=== PATIENT | female | born 1985 | race American Indian/Alaskan Native ===

== ENCOUNTER 2019-06-03 09:59 | Emergency (ER) | payer SELFPAY ==
[2019-06-03 10:19] VITALS: BP 120/82
[2019-06-03] MEDS ORDERED: traMADol 50 MG TAB PO ONE (11:18)
--- NOTE | 2019-06-03 11:20 | Emergency Department Report ---
ED Back Pain/Injury HPI - General Chief Complaint: Neck Pain/Injury Stated Complaint: BACK SHARP PAIN Time Seen by Provider: 06/03/19 10:39 Source: patient Limitations: No Limitations - History of Present Illness Initial Comments: This is a 33-year-old -[place] female who presents to the emergency room with mid back pain today. Patient states she fell asleep while riding in a car from [place] yesterday and woke up with mid back pain. Reports pain is worse with movement of right upper extremity. Patient reports taking toms, Robitussin, and NSAIDs with no improvement of symptoms. She denies recent injury, numbness or tingling, paresthesias, swelling, bruising, or weakness. MD Complaint: back pain Onset/Timin -: days(s) Similar Symptoms Previously: No Place: street Severity: severe Severity scale (0 -10): 10 Quality: dull Consistency: intermittent Improves With: immobilization Worsens With: movement Context: unknown Associated Symptoms: denies: numbness, difficulty urinating, incontinence, fever/chills Treatments Prior to Arrival: NSAIDS, other medications - Related Data Previous Rx's Medication Instructions Recorded Last Taken Type Ibuprofen [Motrin 800 MG tab] 800 mg PO Q8HR PRN #20 tablet 06/03/19 Unknown Rx methOCARBAMOL [Robaxin TAB] 500 mg PO BID PRN #15 tablet 06/03/19 Unknown Rx Allergies Allergy/AdvReac Type Severity Reaction Status Date / Time No Known Allergies Allergy Unverified 06/03/19 10:04 ED Review of Systems ROS: Stated complaint: BACK SHARP PAIN Other details as noted in HPI Constitutional: denies: chills, fever Respiratory: denies: cough, shortness of breath, wheezing Cardiovascular: denies: chest pain, palpitations Gastrointestinal: denies: abdominal pain, nausea, diarrhea Musculoskeletal: back pain. denies: joint swelling, arthralgia Skin: denies: rash, lesions Neurological: denies: headache, weakness, paresthesias Psychiatric: denies: anxiety, depression ED Past Medical Hx - Past Medical History Gastritis ED Back Pain Physical Exam - Exam General: Vital signs noted. No distress. Alert and acting appropriately. Back/Abdomen: Yes Perithoracic Tenderness, No Abdominal Tenderness, No Perilumbar Tenderness, No Sacroiliac Tenderness, No Flank Tenderness, No Straight Leg Raise Pain Neuro: Yes Normal Sensation, Yes Normal DTR's, Yes Normal Gait, No Motor We akness ED Course Vital Signs 06/03/19 10:16 Temperature 97.9 F Pulse Rate 87 Respiratory 18 Rate Blood Pressure 120/82 O2 Sat by Pulse 100 Oximetry ED Medical Decision Making - Radiology Data Radiology results: report reviewed XR spine thoracic 2V INDICATION / CLINICAL INFORMATION: back pain. COMPARISON: None available. FINDINGS: BONES/JOINT(S): No vertebral fracture. No significant degenerative changes. Slight right convex scoliosis with the apex around the T6-7 level. (This may be positional). No aggressive appearing bone lesions. SOFT TISSUES: No significant abnormality. ADDITIONAL FINDINGS: There is a calcified left hilar lymph node in keeping with previous granulomas disease. - Medical Decision Making Patient was examined by me. Patient is nontoxic appearing and stable. Vitals are normal. Obtained x-ray of thoracic spine with no acute radiographic findings. Given analgesics while in the ER. Physical findings susceptible of muscle strain of thoracic spine. Patient informed of results. Start muscle rel axers and ibuprofen. Follow up with PCP or return to the ER with worsening symptoms. Patient discharged home in stable condition. Critical care attestation.: If time is entered above; I have spent that time in minutes in the direct care of this critically ill patient, excluding procedure time. ED Disposition Clinical Impression: Strain of muscle at thorax level Back pain Qualifiers: Back pain location: thoracic back pain Chronicity: acute Back pain laterality: midline Qualified Code(s): M54.6 - Pain in thoracic spine Disposition: DC-01 TO HOME OR SELFCARE Is pt being admited?: No Condition: Stable Instructions: Muscle Strain (ED), Arthralgia (ED) Additional Instructions: Rest Use ice or heat on affected area for 20 minutes and off for 2 hours. Take pain medication as needed for pain. Don't drive or operate heavy machinery while taking muscle relaxers because they may cause drowsiness. Follow up with Primary Care Provider in 2-3 days. Prescriptions: Ibuprofen [Motrin 800 MG tab] 800 mg PO Q8HR PRN #20 tablet PRN Reason: Pain , Severe (7-10) methOCARBAMOL [Robaxin TAB] 500 mg PO BID PRN #15 tablet PRN Reason: Muscle Spasm Referrals: [facility] [Outside] - 3-5 Days [facility] [Outside] - 3-5 Days [facility] [Outside] - 3-5 Days Forms: Work/School Release Form(ED) Time of Disposition: 12:08
--- NOTE | 2019-06-03 11:58 | XRay Report ---
XR spine thoracic 2V INDICATION / CLINICAL INFORMATION: back pain. COMPARISON: None available. FINDINGS: BONES/JOINT(S): No vertebral fracture. No significant degenerative changes. Slight right convex scoli osis with the apex around the T6-7 level. (This may be positional). No aggressive appearing bone lesi ons. SOFT TISSUES: No significant abnormality. ADDITIONAL FINDINGS: There is a calcified left hilar lymph node in keeping with previous granulomas d isease. Signer Name: Shiv Maldonado MD Signed: 06/03/2019 11:54 AM Workstation Name: [id number]
== END 2019-06-03 13:01 | disposition home or self-care (01) ==
LOC: ED 09:59
DX: S29.012A Strain of muscle and tendon of back wall of thorax, initial encounter (principal); Z79.899 Other long term (current) drug therapy; W18.39XA Other fall on same level, initial encounter; Y93.89 Activity, other specified; Y92.89 Other specified places as the place of occurrence of the external cause; Y99.8 Other external cause status
CPT/HCPCS: 72070